=== PATIENT | female | born 1995 | race Caucasian/White ===

== ENCOUNTER 2023-02-13 07:52 | Outpatient (CLI) | payer OTHER | END 2023-02-13 07:53 | disposition home or self-care (01) | LOC: ULT 07:52 | PROVIDERS: ATTEND Internal Medicine Gastroenterology | DX: K52.9 Noninfective gastroenteritis and colitis, unspecified (principal); R10.9 Unspecified abdominal pain; K80.20 Calculus of gallbladder without cholecystitis without obstruction | CPT/HCPCS: 76700 ==